=== PATIENT | female | born 1980 | race Hispanic/Latino ===

== ENCOUNTER 2019-04-12 12:16 | Outpatient (CLI) | payer MEDICAID ==
--- NOTE | 2019-04-12 13:13 | MMO ---
Bilateral MAMMO Bilat Screen DDI. CLINICAL HISTORY: Patient is 39 years old and is seen for screening. The patient has no family history of breast cancer. The patient has no personal history of cancer. VIEWS: The views performed were: bilateral craniocaudal; bilateral mediolateral oblique; and bilateral exaggerated craniocaudal. FILMS COMPARED: The present examination has been compared to a prior imaging study performed at [facility] on 03/23/2018. This study has been interpreted with the assistance of computer-aided detection. MAMMOGRAM FINDINGS: The breasts are heterogeneously dense, which could obscure a lesion on mammography. There are no suspicious masses, suspicious calcifications, or new areas of architectural distortion. IMPRESSION: THERE IS NO MAMMOGRAPHIC EVIDENCE OF MALIGNANCY. A ROUTINE FOLLOW-UP MAMMOGRAM IN 1 YEAR IS RECOMMENDED. ACR BI-RADS Category 1 - Negative MAMMOGRAPHY NOTE: 1. A negative mammogram report should not delay a biopsy if a dominant of clinically suspicious mass is present. 2. Approximately 10% to 15% of breast cancers are not detected by mammography. 3. Adenosis and dense breasts may obscure an underlying neoplasm. Reported by: ITZEL VERDIN MD Electonically Signed: [id number]
== END 2019-04-12 12:17 | disposition home or self-care (01) ==
LOC: BICMAMMO 12:16
PROVIDERS: ATTEND Nurse Practitioner Family
DX: Z12.31 Encounter for screening mammogram for malignant neoplasm of breast (principal)
CPT/HCPCS: 77067

== ENCOUNTER 2021-04-23 08:23 | Outpatient (CLI) | payer MEDICAID | END 2021-04-23 08:24 | disposition home or self-care (01) | LOC: BICMAMMO 08:23 | PROVIDERS: ATTEND Specialist | DX: Z12.31 Encounter for screening mammogram for malignant neoplasm of breast (principal) | CPT/HCPCS: 77067 ==

== ENCOUNTER 2022-04-24 11:54 | Outpatient (CLI) | payer OTHER | END 2022-04-24 11:55 | disposition home or self-care (01) | LOC: BICMAMMO 11:54 | PROVIDERS: ATTEND Specialist | DX: Z12.31 Encounter for screening mammogram for malignant neoplasm of breast (principal); N63.20 Unspecified lump in the left breast, unspecified quadrant | CPT/HCPCS: 77063; 77067 ==

== ENCOUNTER 2023-06-02 10:47 | Outpatient (CLI) | payer OTHER | END 2023-06-02 10:48 | disposition home or self-care (01) | LOC: BICMAMMO 10:47 | PROVIDERS: ATTEND Plastic Surgery Surgery of the Hand | DX: Z12.31 Encounter for screening mammogram for malignant neoplasm of breast (principal) | CPT/HCPCS: 77063; 77067 ==

== ENCOUNTER 2023-06-02 20:35 | Inpatient (IN) | payer OTHER ==
[2023-06-02] MEDS ORDERED: Ondansetron PF 4 MG/2 ML Vial ONE ×2 (20:53→21:57)
[2023-06-02] MEDS ORDERED: Morphine 4 MG/ML VIAL ONE ×2 (20:53→21:13)
[2023-06-02] MEDS ORDERED: Ketamine In 0.9 % NaCl 50 MG/5 ML SYRINGE ONE (21:15)
[2023-06-02] MEDS ORDERED: Ondansetron PF 4 MG/2 ML Vial IVP PRN ×2 (21:45→22:21)
[2023-06-02] MEDS ORDERED: Ondansetron ODT 4 MG TAB SL PRN (21:45)
[2023-06-02] MEDS ORDERED: Acetaminophen 325 MG TAB PO PRN (21:45)
[2023-06-02] MEDS ORDERED: Morphine 2 MG/ML VIAL SLOW IVP PRN (22:21)
[2023-06-02] MEDS ORDERED: Ipratropium/Albuterol 3 ML NEB NEB PRN (22:21)
[2023-06-02] MEDS ORDERED: Ondansetron ODT 4 MG TAB PO PRN (22:21)
[2023-06-02] MEDS ORDERED: Morphine 4 MG/ML VIAL SLOW IVP PRN (22:21)
[2023-06-03 00:18] VITALS: BMI 30.2
[2023-06-03] MEDS: Acetaminophen 500 MG TAB PO SCH ×3 (00:38→07:41)
[2023-06-03] MEDS: Sodium Chloride 0.9% 1,000 ML IV SCH ×4 (00:40→23:36)
[2023-06-03 05:09] LABS: #Monocytes 0.3 thou/uL (0.11-0.59); #Neutrophils 9.7 thou/uL (1.40-6.50); %Basophils 0.2 % (0.0-1.0); %Lymphocytes 10.4 % (21.0-51.0); %Monocytes 2.7 % (0.0-10.0); %Neutrophils 86.4 % (42.0-75.0); Hematocrit 37.4 % (36.0-47.0); Mean Corpuscular HGB CONC 32.1 g/dL (32.0-36.0); Mean Corpuscular Hemoglobin 31.5 pg (27.0-31.0); Mean Corpuscular Volume 98.2 fl (78.0-98.0); Mean Platelet Volume 12.6 fL (7.4-10.4); Platelet Count 184 10x3/uL (130-400); RBC Distribution Width 12.6 % (11.5-14.5); Red Blood Cell (RBC) Count 3.81 mill/uL (4.20-5.40); White Blood Cell (WBC) Count 11.2 10x3/uL (4.8-10.8)
[2023-06-03 05:31] LABS: Prothrombin Time 13.6 sec (12.0-14.7)
[2023-06-03 05:50] LABS: Anion Gap 14 mmol/L (10-20); BUN (Urea Nitrogen) 18 mg/dL (7.0-18.7); Calc. Creatinine Clearance 100 mL/min (70-130); Calcium 8.7 mg/dL (7.8-10.44); Carbon Dioxide 21 mmol/L (22-29); Chloride 106 mmol/L (98-107); Estimated GFR 107; Glucose 122 mg/dL (70-105); Potassium 4.1 mmol/L (3.5-5.1); Sodium 137 mmol/L (136-145)
[2023-06-03] MEDS ORDERED: CEFAZOLIN 2 GM in Sodium Chloride 0.9% 100 ML IVPB SCH (07:30)
[2023-06-03] MEDS: Famotidine/PF 20 mg/2ml Vial SLOW IVP SCH ×2 (09:01→22:16)
[2023-06-03] MEDS ORDERED: Midazolam HCl 2 mg/2 ml Vial ONE (13:32)
[2023-06-03] MEDS ORDERED: fentaNYL 50 mcg/mL 1 mL Vial ONE ×2 (13:32→14:01)
[2023-06-03] MEDS ORDERED: Bupivacaine PF 0.5% 30 ML VIAL ONE ×2 (13:33→13:46)
[2023-06-03] MEDS ORDERED: EPINEPHrine 1 MG/ML AMP ONE (13:46)
[2023-06-03] MEDS ORDERED: CEFAZOLIN 2 GM VIAL ONE (13:53)
[2023-06-03] MEDS ORDERED: Sodium Chloride 0.9% 100 ML ONE (13:53)
[2023-06-03] MEDS ORDERED: HYDROmorphone 2 MG/ML VIAL SLOW IVP PRN (14:16)
[2023-06-03] MEDS ORDERED: Promethazine HCl 25 MG/ML VIAL IM PRN ×2 (14:16→14:30)
[2023-06-03] MEDS ORDERED: Ondansetron HCl/PF 4 MG/2 ML Vial IVP PRN (14:16)
[2023-06-03] MEDS ORDERED: fentaNYL 50 mcg/mL 1 mL Vial SLOW IVP PRN (14:24)
[2023-06-03] MEDS ORDERED: Ondansetron PF 4 MG/2 ML Vial IVP PRN (14:30)
[2023-06-03] MEDS ORDERED: HYDROcodone/Acetaminophen 10/325 mg Tablet PO PRN ×2 (14:30)
[2023-06-03] MEDS ORDERED: Zolpidem Tartrate 5 MG TAB PO PRN (14:30)
[2023-06-03] MEDS ORDERED: traMADol HCl 50 MG TAB PO PRN ×2 (14:30)
[2023-06-03] MEDS ORDERED: Ropivacaine 0.2% 550 ML 550 ML NERVE BLCK SCH (14:30)
[2023-06-03] MEDS ORDERED: Ketorolac Tromethamine 30 MG/ML VIAL ONE (16:15)
[2023-06-03] MEDS: Ketorolac Tromethamine 30 MG/ML VIAL IVP SCH ×2 (16:17→23:36)
[2023-06-03] MEDS ORDERED: Fentanyl 100 MCG/2 ML VIAL SLOW IVP PRN (16:47)
[2023-06-03] MEDS: CEFAZOLIN 2 GM in Sodium Chloride 0.9% 100 ML IVPB SCH (22:17)
[2023-06-04] MEDS: Ketorolac Tromethamine 30 MG/ML VIAL IVP SCH (05:41)
[2023-06-04] MEDS: CEFAZOLIN 2 GM in Sodium Chloride 0.9% 100 ML IVPB SCH (05:41)
[2023-06-04] MEDS ORDERED: traMADol HCl 50 MG TAB PO PRN (08:23)
[2023-06-04] MEDS ORDERED: Cyclobenzaprine 10 MG TAB PO PRN (08:23)
[2023-06-04] MEDS ORDERED: Gabapentin 300 MG CAP PO SCH (09:00)
[2023-06-04] MEDS: Sodium Chloride 0.9% 1,000 ML IV SCH (10:08)
[2023-06-04] MEDS: Famotidine/PF 20 mg/2ml Vial SLOW IVP SCH (10:08)
[2023-06-04 11:56] VITALS: BP 111/72; TEMP 98.1
[2023-06-04] MEDS ORDERED: traMADol HCl 50 MG TAB PO SCH (12:00)
[2023-06-04] MEDS ORDERED: Acetaminophen 500 MG TAB PO SCH (14:00)
[2023-06-06] MEDS ORDERED: FLU VACC QS2023-24(6MOS UP)/PF 60 MCG/0.5 ML SYRINGE IM ONE (09:00)
== END 2023-06-04 16:04 | disposition home or self-care (01) | DRG 494 ==
LOC: ERS 20:35 → SJJU 21:34
PROVIDERS: ADMIT Specialist; ATTEND Specialist
PROC: 0QSJ04Z Reposition Right Fibula with Internal Fixation Device, Open Approach (ICD-10-PCS; principal; 2023-06-03)
PROC: 0QSG04Z Reposition Right Tibia with Internal Fixation Device, Open Approach (ICD-10-PCS; 2023-06-03)
DX: S82.841A Displaced bimalleolar fracture of right lower leg, initial encounter for closed fracture (principal); E78.00 Pure hypercholesterolemia, unspecified; E78.5 Hyperlipidemia, unspecified; W19.XXXA Unspecified fall, initial encounter; Z98.51 Tubal ligation status; Z98.890 Other specified postprocedural states; Z90.710 Acquired absence of both cervix and uterus; Z98.42 Cataract extraction status, left eye; Z98.41 Cataract extraction status, right eye; Y92.89 Other specified places as the place of occurrence of the external cause
CPT/HCPCS: 27840; 36415; 80048; 85025; 85610; 85730; 86850; 86900; 86901; 96374; 96375; 96376; 99155; A4306; C1713; C1776; J0171; J1650; J1885; J2250; J2270; J2405; J2795; J3010; J3490; J7050; S0020; S0028

== ENCOUNTER 2023-08-25 06:18 | Emergency (ER) | payer OTHER ==
[2023-08-25] MEDS ORDERED: Cyclobenzaprine 10 MG TAB ONE (06:36)
[2023-08-25] MEDS ORDERED: Lidocaine 4% Patch TD SCH (07:00)
[2023-08-25] MEDS ORDERED: Transdermal Patch Removal TOP SCH (19:00)
== END 2023-08-25 07:01 | disposition home or self-care (01) ==
LOC: ERS 06:18
DX: M54.42 Lumbago with sciatica, left side (principal); E78.00 Pure hypercholesterolemia, unspecified; Z79.899 Other long term (current) drug therapy
CPT/HCPCS: 99283